=== PATIENT | male | born 1990 | race African-American/Black ===

== ENCOUNTER 2019-05-09 23:12 | Emergency (ER) | payer MEDICAID, OTHER ==
[~2019-05-09] VITALS: Ht 177.8 cm; Wt 77.1 kg
[2019-05-09] MEDS ORDERED: HALOPERIDOL LACTATE INJ 5 MG/ML VIAL ONE (23:18)
[2019-05-09] MEDS ORDERED: LORAZEPAM INJ 2 MG/ML VIAL ONE (23:18)
[2019-05-09] MEDS ORDERED: diphenhydrAMINE HCL 50 MG/ML VIAL ONE (23:18)
[2019-05-09] MEDS ORDERED: diphenhydrAMINE HCL 50 MG/ML VIAL IM ONE (23:30)
[2019-05-09] MEDS ORDERED: LORAZEPAM INJ 2 MG/ML VIAL IM ONE (23:30)
[2019-05-09] MEDS ORDERED: HALOPERIDOL LACTATE INJ 5 MG/ML VIAL IM ONE (23:30)
--- NOTE | 2019-05-09 23:30 | NUR ---
ELICIA AND [employer] FROM STREET C/O AGITATION AND DELIRIUM. PER RA, FOUND RUNNING IN STREETS NAKED. REC'D 5MG VERSED EN ROUTE TO HOSPITAL. PT ARRIVED TO [facility] ER STILL AGITATED, VERBALLY/PHYSICALLY AGGRESSIVE. NO ACUTE DISTRESS NOTED AT THIS TIME. PT PLACED IN GOWN, BELONGINGS COLLECTED AND PLACED IN PATIENT LOCKER.
[2019-05-09 23:37] LABS: BASOPHILS # (AUTO) 0.1 /CMM (0.0-0.2); BASOPHILS % (AUTO) 0.6 % (0.0-2.0); EOSINOPHILS % (AUTO) 4.6 % (0.0-6.0); HEMATOCRIT 35 % (39-51); HEMOGLOBIN 11.4 g/dL (13.5-17.5); LYMPHOCYTES # (AUTO) 3.3 /CMM (0.8-4.8); LYMPHOCYTES % (AUTO) 37.9 % (20.0-44.0); MEAN CORPUSCULAR HGB CONC 32 g/dl (31.0-36.0); MEAN CORPUSCULAR VOLUME 91 fL (80-96); MONOCYTES # (AUTO) 0.9 /CMM (0.1-1.30); MONOCYTES % (AUTO) 10.3 % (2.0-12.0); NEUTROPHILS % (AUTO) 46.6 % (43.0-81.0); PLATELET COUNT (AUTO) 267 /CMM (150-450); RED BLOOD CELL COUNT(AUTO) 3.89 MIL/uL (4.5-6.0); WHITE BLOOD COUNT (AUTO) 8.6 K/uL (4.3-11.0)
[2019-05-09 23:51] LABS: ALANINE AMINOTRANSFERASE 57 U/L (12-78); ALBUMIN 3.5 g/dL (3.4-5.0); ALCOHOL, BLOOD < 3 mg/dL (0-0); ALKALINE PHOSPHATASE 120 U/L (46-116); ASPARTATE AMINOTRANSFERASE 33 U/L (15-37); BILIRUBIN,DIRECT 0.1 mg/dL (0.0-0.2); BILIRUBIN,TOTAL 0.2 mg/dL (0.2-1.0); CALCIUM, SERUM 8.8 mg/dL (8.5-10.1); CARBON DIOXIDE 24 mmol/L (21-32); CHLORIDE 106 mmol/L (98-107); CREATININE 1.3 mg/dL (0.6-1.3); GLUCOSE 117 mg/dL (74-106); POTASSIUM 3.8 mmol/L (3.5-5.1); SODIUM SERUM 145 mmol/L (136-145); TOTAL PROTEIN, SERUM 7.3 g/dL (6.4-8.2); UREA NITROGEN, BLOOD 33 mg/dL (7-18)
[2019-05-09 23:54] LABS: ACETAMINOPHEN 0 ug/ml (10-30); SALICYLATE 1.7 mg/dL (2.8-20.0)
--- NOTE | 2019-05-10 01:36 | NUR ---
urine collected and sent to lab
[2019-05-10 01:45] LABS: APPEARANCE,URINE Slightly Cloudy (CLEAR); BILIRUBIN,URINE Negative (NEGATIVE); BLOOD, URINE Small Ery/uL (NEGATIVE); COLOR,URINE Yellow (YELLOW); KETONES,URINE Negative (NEGATIVE); LEUKOCYTE ESTERASE ,URINE Negative (NEGATIVE); NITRITE, URINE Negative (NEGATIVE); PH,URINE 6.5 (5.0-8.0); PROTEIN,URINE 30 mg/dl (NEGATIVE); UGLUCOSE Negative (NEGATIVE); UROBILINOGEN,URINE 0.2 EU/dL (0.2)
--- NOTE | 2019-05-10 01:45 | NUR ---
PATIENT IS SLEEPING. EASILY AROUSED BY MECHANICAL AND VERBAL STIMULI. BREATHING EVENLY AND UNLABORED ON ROOM AIR. CONNECTED TO MONITOR. SITTER AT BEDSIDE
[2019-05-10 02:06] LABS: BACTERIA,URINE Few /HPF (None Seen); SQUAMOUS EPITHELIAL CELL,UR Rare /HPF (None Seen); WBC,URINE 0-2 /HPF (0-3)
--- NOTE | 2019-05-10 03:12 | NUR ---
Patient is resting comfortably in bed with eyes closed. Easily aroused. VSS
--- NOTE | 2019-05-10 08:30 | NUR ---
PATIENT STILL ASLEEP, AROUSABLE. BUT STILL UNABLE TO ANSWER QUESTIONS AT THIS TIME.
--- NOTE | 2019-05-10 11:15 | NUR ---
PATIENT AWAKE NOW, WAS ABLE TO GET THE NAME. NEEDS ATTENDED. WILL ORDER FOOD TRAY.
--- NOTE | 2019-05-10 12:13 | NUR ---
Social service consult requested by MD for methamphetamine use. Per MD notes, pt is a 28-year-old male who was brought by EMS around midnight with complaints of agitation. Apparently pt was running around naked. Patient arrived in ED screaming and yelling incoherently. EMPLOYEE RELATION MANAGER met with the pt bedside. Pt is alert and oriented x 2. Pt appears disheveled and lethargic. Pt states he resides in [place] but is not able to provide an address. Pt's UDS is positive for methamphetamines and benzos. EMPLOYEE RELATION MANAGER is unable to get an accurate assessment at this time due to pt. falling asleep during the assessment. Pt will need to be reassessed when he is more alert and oriented to provide meaningful information.
--- NOTE | 2019-05-10 14:35 | NUR ---
Patient given written and verbal discharge instructions. Patient verbalizes understanding of instructions. Patient is ambulatory with steady gait. Refuses offer of long-term placement. Patient given list of available shelters in surrounding area.
[2019-05-10 14:36] VITALS: BP 127/82
== END 2019-05-10 14:46 | disposition home or self-care (01) ==
LOC: ER 23:13 → EDBD 23:13 → ER 05-10 14:46
DX: F15.10 Other stimulant abuse, uncomplicated (principal); F13.10 Sedative, hypnotic or anxiolytic abuse, uncomplicated; R41.82 Altered mental status, unspecified
CPT/HCPCS: 36415; 80048; 80076; 80305; 80307; 80329; 81001; 85025; 96372 ×3; 99285; G0480; J1200; J1630; J2060; 81000-TC